=== PATIENT | female | born 1970 | race Caucasian/White ===

== ENCOUNTER → 2021-02-23 13:48 | Outpatient (BNVA) | payer BC, SELFPAY | PROVIDERS: Family Provider Family Medicine; PCP Physician Assistant Medical; Visit Provider Obstetrics & Gynecology | DX: Z12.39 Encounter for other screening for malignant neoplasm of breast (principal); Z12.4 Encounter for screening for malignant neoplasm of cervix; D27.9 Benign neoplasm of unspecified ovary; N94.89 Other specified conditions associated with female genital organs and menstrual cycle | CPT/HCPCS: 81500; 88175 ==

== ENCOUNTER → 2021-03-09 15:14 | Outpatient (BNVA) | payer BC, SELFPAY | PROVIDERS: Family Provider Family Medicine; PCP Physician Assistant Medical; Visit Provider Obstetrics & Gynecology | DX: D27.9 Benign neoplasm of unspecified ovary (principal); N94.89 Other specified conditions associated with female genital organs and menstrual cycle | CPT/HCPCS: 76830; 87635 ==

== ENCOUNTER 2021-03-14 08:14 | Inpatient (IN) | payer BC, SELFPAY ==
[2021-03-13 11:34] VITALS: BMI 24.2
[2021-03-14] VITALS (16 sets, daily range): BP systolic 105–159; BP diastolic 64–93; PULSE 55–84; RESP 14–20; TEMP 36.4–36.7; O2SAT 93–97
[2021-03-14 06:52] LABS: Basophils % 0.4 %; Eosinophils # 0.1 10^3/uL (0.0-0.8); Eosinophils % 1.3 %; Hematocrit 46.3 % (37.0-47.0); Hemoglobin 16.1 g/dL (11.5-15.3); Lymphocytes # 3.3 10^3/uL (0.8-4.8); Lymphocytes % 30.2 %; Mean Corpuscular HGB Conc 34.8 g/dL (30.0-36.0); Mean Platelet Volume 11.6 fL (7.4-10.4); Monocytes # 0.6 10^3/uL (0.2-0.9); Monocytes % 5.8 %; Neutrophils # 6.83 10^3/uL (1.8-7.7); Nucleated Red Blood Cells % 0 %; Platelet Count 257 10^3/cmm (130-400); Red Cell Distribution Width 12.7 % (12.1-15.1)
[2021-03-14] MEDS: sodium chloride 0.9% 1,000 ML 30 ML IV (06:52)
[2021-03-14] MEDS: CELEcoxib 200 mg Capsule 400 MG PO (06:54)
[2021-03-14] MEDS: acetaminophen 1,000 MG/100 ML PIGGYBACK 400 MG IV (06:54)
[2021-03-14] MEDS: ketorolac 30 mg/mL INJ IVP ×3 (06:56→19:38)
[2021-03-14] MEDS: gabapentin 300 mg Capsule PO (06:56)
--- NOTE | 2021-03-14 07:01 | W.PM.OPSUD ---
Surgery/Procedure H&P Update DATE OF PROCEDURE: March 14, 2021 DATE H&P PERFORMED: 03/09/21 H&P UPDATE INFORMATION: I have reviewed H&P completed within last 30 days, I have examined patient prior to procedure and No changes to prior documentation PREOP DIAGNOSIS: ovarian teratoma PLANNED PROCEDURE: Operation Date: 03/14/21 07:00 Proposed Procedures p Removal of teratoma, 64994, 53013, 85962 n94.89(Not Applicable) - Arcelia Bradshaw MD s possible salpingo-oophorectomy, open, partial or total, unilateral or bilateral(Not Applicable) - Arcelia Bradshaw MD s Mini Laparotomy(Not Applicable) - Arcelia Bradshaw MD
--- NOTE | 2021-03-14 07:02 | ANES.PREANE2 ---
Pre-Anesthetic Assessment Pre-Anesthetic Assessment: Height/Weight: Height 1.68 m Weight 68.039 kg Temp Pulse Resp BP Pulse Ox 97.8 F 69 18 140/90 95 03/14/21 06:21 03/14/21 06:21 03/14/21 06:21 03/14/21 06:21 03/14/21 06:21 Preop Diagnosis: ovarian teratoma Proposed Procedure: Operation Date: 03/14/21 07:00 Proposed Procedures p Removal of teratoma, 02548, 25045, 06244 n94.89(Not Applicable) - Arcelia Bradshaw MD s possible salpingo-oophorectomy, open, partial or total, unilateral or bilateral(Not Applicable) - Arcelia Bradshaw MD s Mini Laparotomy(Not Applicable) - Arcelia Bradshaw MD Was Beta Marlyn taken within 24 hours: N/A Was Clonidine taken within 24 hours: N/A Last intake: Intake Last Liquid Date 03/13/21 Last Liquid Time 20:30 Last Solid Date 03/12/21 Last Solid Time 18:00 Social: Social History: Tobacco and No alcohol Exam: Pre-Anes Outpt Exam: alert, oriented x 3 and regular rate & rhythm Airway: Submandibular: WNL Cervical ROM: WNL MP: 2 Dentition: Full Pulmonary: Pulmonary: COPD Neuropsych: Neuropsych: Anxiety and Depression Anesthetic Plan: ASA status: 3 Anesthesia: General Risk of > 500 ml blood loss (7ml/kg in children): No Meds/Allergies Current Medications: Current Medications Generic Name Dose Route Start Last Admin Trade Name Freq PRN Reason Stop Dose Admin Sodium Chloride 1,000 mls @ 30 ml s/hr 03/14/21 06:00 03/14/21 06:52 Sodium Chloride 0.9% IV 03/15/21 05:59 30 mls/hr .Q24H VICKIE Administration PFSH Anesthesia PFSH: Medical History (Updated 02/23/21 @ 14:12 by Arcelia Bradshaw MD) Teratoma of ovary Family History (Updated 02/23/21 @ 13:00 by Corrine Antonio LPN) Mother Hyperlipidemia Grandmother Stroke Maternal Denies family history of Diabetes Ovarian cyst Clotting disorder Heart disease Chronic kidney disease (CKD) Bleeding disorder Cancer Hypertension Thyroid disease Data Anesthesia CBC & Chem 7: 03/14/21 06:40 03/14/21 06:40 Cardiac Studies: No Data to Display
[2021-03-14 07:12] LABS: Alanine Aminotransferase 17 U/L (0-33); Albumin Level 4.6 g/dL (3.5-5.2); Alkaline Phosphatase 82 IU/L (35-105); Blood Urea Nitrogen 7 mg/dL (6-20); Calcium 9.9 mg/dL (8.5-10.5); Carbon Dioxide 22 mmol/L (22-29); Chloride 101 mmol/L (98-107); Globulin 3.2 g/dL (1.3-4.6); Glomerular Filtration Rate 105.4 mL/min (90-130); Glucose 117 mg/dL (65-115); Osmolality Calculated 283 mOsm/kg (285-295); Sodium 137 mmol/L (136-145); Total Bilirubin 0.6 mg/dL (0.15-1.2); Total Protein 7.8 g/dL (6.6-8.7)
[2021-03-14 07:20] LABS: Anion Gap 17.9 (5-19); Aspartate Amino Transferase 16 U/L (0-32); Potassium 3.9 mmol/L (3.5-5.1)
[2021-03-14 07:25] LABS: Slide Review Slide Review Perform
--- NOTE | 2021-03-14 08:07 | P.OP_ITS ---
Operative Report Date of procedure: March 14, 2021 Pre-op Diagnosis: ovarian teratoma Post-op diagnosis: same Post-op Findings: 8 cm left ovarian mass. Procedure Done: laparotomy with left oophorectomy Specimens removed/disposition: left ovary to pathology Surgeon: Arcelia Bradshaw Anesthesia: General Estimated blood loss (mL): 50 IV fluids (mL): 500 Urine output (mL): 30 Complications: none Findings: left ovarian cyst with thick fluid, normal appearing uterus and right ovary Condition: stable Disposition: PACU Brief History: The patient presented to clinic with complaints of LLQ pain and a recent diagnosis of left ovarian teratoma Procedure: The patient was taken to the operating room where general anesthesia was administered and found to be adequate. She was prepped and draped in the normal sterile fashion in the dorsal supine position. A Pfannenstiel skin incision was made and carried down to the underlying layer of fascia. The fascia was nicked in the midline and extended laterally with the Barber scissors. The fascia was then tented up and the rectus muscles dissected off sharply. The rectus muscles were in the midline and the abdomen entered bluntly with the digit. This peritoneal incision was extended superiorly and inferiorly with good visualization of the bladder. The Hitesh-O retractor was placed and the bowel packed away. The left ovary was visible and enlarged. Utilizing two Tung clamps, the infundibulo-pelvic ligament was doubly clamped and suture ligated. The specimen was removed. There was excellent hemostasis. The retrac tor as well as the packing was removed. The peritoneum was closed with 2-0 Monocryl in a running fashion. Surgicell was placed onto the rectus muscles. The fascia was closed with 0 Vicryl in a running fashion with 2 separate sutures overlapping in the midline. The skin was closed with absorbable lucy. The patient tolerated the procedure well. Sponge lap and needle counts were correct x2. She was taken to the recovery room in stable condition.
[2021-03-14] MEDS: HYDROcodone-acetaminophen 5-325 mg Tablet PO ×3 (09:52→21:40)
[2021-03-14] MEDS: ALPRAZolam 0.5 mg Tablet PO ×2 (10:18→20:29)
--- NOTE | 2021-03-14 11:37 | ANE.PACU2 ---
Inpatient post-anesthesia follow up: Airway intact: Yes Vital signs: Temperature 97.6 F Pulse Rate 64 Respiratory Rate 18 Blood Pressure 142/93 Pulse Oximetry 96 Oxygen Delivery Me thod Room Air Oxygen Flow Rate Fraction of Inspir ed Oxygen Hydration adequate: Yes Nausea and vomiting: No Pain level: 2 Mental status: Baseline
--- NOTE | 2021-03-14 11:54 | PC.NURSE ---
When asked patient how her pain was doing, patient replied It's doing better. Nurse then asked patient was her pain rating was from 0-10, and she rated it at an 8.
[2021-03-14] MEDS: simethicone 80 mg Chew PO (12:00)
[2021-03-14] MEDS: dextrose 5%-lactated ringers 1,000 ML 125 ML IV ×2 (12:32→20:30)
[2021-03-14] MEDS: HYDROmorphone 1 mg/mL INJ 1 mL 1.5 MG IVP (12:53)
[2021-03-14] MEDS: docusate sodium 100 mg Capsule PO (18:21)
[2021-03-14] MEDS: gemfibrozil 600 mg Tablet PO (18:22)
--- NOTE | 2021-03-15 04:04 | PC.NURSE ---
PT STATES HER PAIN IS A 8-9/10 IN HER ABDOMEN. SHE HAS NOT BEEN OUT OF BED. NURSE EDUCATED PT ON IMPORTANCE OF AMBULATING AND BEING UP TOLERATED. SHE REQUESTS PAIN MEDICATION BUT STATES THE HYDROCODONE IS KEEPING ME AWAKE AND NOT LETTING ME SLEEP . STATES HER PAIN IS SEVERE AND SHE WOULD LIKE THE DILAUDID SHE RECEIVED EARLIER IN THE DAY.
[2021-03-15 04:05] VITALS: RESP 16
[2021-03-15] MEDS: HYDROmorphone 1 mg/mL INJ 1 mL 1.5 MG IVP (04:05)
[2021-03-15 04:22] LABS: Hematocrit 33.5 % (37.0-47.0); Hemoglobin 11.3 g/dL (11.5-15.3); Mean Corpuscular HGB Conc 33.7 g/dL (30.0-36.0); Mean Corpuscular Hemoglobin 30.8 pg (28.0-34.0); Mean Corpuscular Volume 91.3 fL (81-99); Mean Platelet Volume 10.6 fL (7.4-10.4); Platelet Count 242 10^3/cmm (130-400); Red Blood Count 3.67 10^6/uL (4.1-5.3); White Blood Count 15.8 10^3/uL (4.0-10.0)
[2021-03-15 05:45] VITALS: BP 113/70; PULSE 80; RESP 16; TEMP 36.6
[2021-03-15] MEDS: sodium chloride 0.9% 500 ML IV (06:05)
--- NOTE | 2021-03-15 06:35 | PC.NURSE ---
output has been 100-150 q two hours for the night. from 0814-6024 - output was only 50ml. 500ml Normal Saline bolus started per orders. Process explained to patient. Denied any questions at this time.
[2021-03-15] MEDS: dextrose 5%-lactated ringers 1,000 ML 125 ML IV (06:38)
[2021-03-15] MEDS: ALPRAZolam 0.5 mg Tablet PO ×2 (08:09→14:11)
[2021-03-15] MEDS: docusate sodium 100 mg Capsule PO (08:09)
[2021-03-15] MEDS: gemfibrozil 600 mg Tablet PO (08:09)
[2021-03-15] MEDS: ibuprofen 800 mg tablet PO ×2 (09:01→15:44)
[2021-03-15] MEDS: simethicone 80 mg Chew PO (09:02)
--- NOTE | 2021-03-15 09:03 | P.PN_ITS ---
Subjective Subjective: Interval history: The patient is doing well this morning. She was concerned that I performed a hysterectomy instead of an oophorectomy. I assured her that her uterus and right ovary were still present. She is tolerating a regular diet. She is passing flatus. She reports that her pain is not very well controlled. Medications: Reviewed: Yes Vitals/I&O/Wt Last Vital Signs Temp 97.9 F 03/15/21 05:45 Pulse 80 03/15/21 05:45 Resp 16 03/15/21 05:45 BP 113/70 03/15/21 05:45 Pulse Ox 93 03/14/21 13:54 03/14/21 03/15/21 03/15/21 22:59 06:59 14:59 Intake Total 800.00 / 2243.333 1000 / 3243.333 Output Total 200 / 635 375 / 1010 70 / 70 Balance 600.00 / 1608.333 625 / 2233.333 -70 / -70 Weight last 48 hrs Weight 150 lb Weight 150 lb Physical Exam Const: COMMON NORMALS: no acute distress, average body habitus, patient oriented x3, no limitations and healthy appearing GENERAL APPEARANCE: cooperative, comfortable, well kempt and well developed ORIENTATION/CONSCIOUSNESS: Yes awake, Yes oriented to person, Yes oriented to place and Yes oriented to time Resp: COMMON NORMALS: normal respiratory effort EFFORT & INSPECTION: Yes able to speak in complete sentences GI: COMMON NORMALS: Soft to palpation, non-tender and no masses INSPECTION: Yes abdominal distension PALPATION: Yes Soft to palpation Extremity: COMMON NORMALS: no clubbing, cyanosis or edema and no calf tenderness Neuro: COMMON NORMALS: patient oriented x3 SENSORIUM/ORIENTATION: Yes oriented to person, Yes oriented to place and Yes oriented to time Psych: APPEARANCE: Yes well kempt Urinary Catheter Management^: F: Cath Placed During This Visit: yes Reason for Continuing Indwelling Catheter: Accurate Measurement of Urinary Output in Critically Ill Patients Urinary Catheter Date of Insertion: 03/14/21 Urinary Catheter Time of Insertion: 07:15 Data : 03/15/21 04:15 03/14/21 06:40 A&P Assessment and plan (1) Postoperative state: assured patient that only surgery was a left ovary removal remove the hoyt catheter simethicone for gas ambulate as much as possible today get pain under control Status: Acute Attestations Medical Necessity Statement*: The patient had an open surgery. She will be here two midnights. Coding Level of Care Code Acute [employer]electric Plant Operator for Andreea Kovacs Diagnoses Postoperative state Z98.890
[2021-03-15 09:51] VITALS: BP 121/73; PULSE 64; RESP 16; TEMP 36.8; O2SAT 94
[2021-03-15] MEDS: HYDROcodone-acetaminophen 5-325 mg Tablet PO (14:11)
[2021-03-15 14:15] VITALS: BP 129/80; PULSE 68; RESP 16; TEMP 36.8; O2SAT 98
--- NOTE | 2021-03-15 15:23 | P.DS_ITS ---
Discharge Providers Date of Admission: 03/14/21 08:14 Date of Discharge: March 15, 2021 Attending Provider at Admission: Arcelia Bradshaw MD Attending Provider at Discharge: Arcelia Bradshaw MD Primary Care Provider: Kenton Edwards Diagnoses at Discharge Discharge Diagnosis (1) Postoperative state: Status: Acute Reason for Visit Reason for Visit: Cystectomy, possible unilateral salpingo-oophorect Hospital Course Hospital Course The patient was admitted for surgery. She did well postoperatively and requested to be discharged on POD#1 Physical Exam Urinary Catheter Management^: F: Cath Placed During This Visit: yes, but has since been removed by the nurse Reason for Continuing Indwelling Catheter: Accurate Measurement of Urinary Output in Critically Ill Patients Urinary Catheter Date of Insertion: 03/14/21 Urinary Catheter Time of Insertion: 07:15 Date Urinary Catheter Removed: 03/15/21 Time Urinary Catheter Discontinued: 09:00 Discharge Data Data Completed and Pending: Pending at discharge Category Date Time Status Pathology: Surgic al [PTH] Routine Pth 03/14/21 08:12 Received Labs from last 24 hours 03/15/21 04:15 WBC 15.8 H RBC 3.67 L Hgb 11.3 L Hct 33.5 L MCV 91.3 MCH 30.8 MCHC 33.7 RDW 13.0 Plt Count 242 MPV 10.6 H Vitals: Last Vital Signs Temp 98.2 F 03/15/21 14:15 Pulse 68 03/15/21 14:15 Resp 16 03/15/21 14:15 BP 129/80 03/15/21 14:15 Pulse Ox 98 03/15/21 14:15 Discharge Plan Discharge Patient Disposition: Home Condition: Stable Prescriptions: New hydrocodone-acetaminophen 5-325 mg Tablet 1 - 2 tab PO Q6H PRN (Reason: Moderate To Severe Pain) Qty: 15 RF: 0 Continued alprazolam 0.5 mg tablet 0.5 mg PO TID PRN (Reason: Anxiety) RF: 0 venlafaxine 37.5 mg capsule,extended release 24hr 37.5 mg PO DAILY PRN (Reason: Menopausal Symptoms) RF: 0 gemfibrozil 600 mg PO BID RF: 0 baclofen 20 mg tablet 20 mg PO DAILY PRN (Reason: Muscle Spasm) RF: 0 Discharge Orders: Discharge Order (Routine); Ordered 03/15/21 Ordered By: Arcelia Bradshaw Patient Instructions: Ovarian Cyst (DC), Exploratory Laparotomy (DC), OB Abd ominal Surgery - [facility], OB Discharge Report, OB Food/Drug Interaction Guide, Opioid Safety Discharge Attestations Time Spent in Discharge Care*: less than 30 min Quality Metrics Clinical Quality Measures During this hospital stay, did patient experience: None Coding Level of Care Code Acute Chg FW DC note Diagnoses Postoperative state Z98.890
[2021-03-15 16:00] VITALS: BP 129/80; PULSE 68; RESP 16; TEMP 36.8; O2SAT 98
== END 2021-03-15 16:00 | disposition home or self-care (01) | DRG 743 ==
LOC: OBGYN 03-15 07:39
PROVIDERS: Admitting Provider Obstetrics & Gynecology; Family Provider Family Medicine; PCP Physician Assistant Medical; Visit Provider Obstetrics & Gynecology
PROC: 0UT10ZZ Resection of Left Ovary, Open Approach (ICD-10-PCS; principal; 2021-03-14 07:00)
PROC: 0UT10ZZ Resection of Left Ovary, Open Approach (ICD-10-PCS; 2021-03-14 07:00)
DX: D27.1 Benign neoplasm of left ovary (principal); F17.210 Nicotine dependence, cigarettes, uncomplicated
CPT/HCPCS: 36415; 80053; 85025; 85027; 87086; 88305; 96365; 96374; J0690; J1100; J1170; J1885; J2250; J2405; J2704; J2710; J3010; J3490; J7030; J7040